=== PATIENT | female | born 1995 | race Two or more races ===

== ENCOUNTER 2020-05-17 07:38 | Emergency (ER) | payer OTHER ==
[~2020-05-17] VITALS: Ht 165.1 cm; Wt 107.0 kg
[2020-05-17] MEDS ORDERED: SODIUM CHLORIDE 0.9% 1,000 ML IV ONE (08:45)
[2020-05-17 09:05] LABS: BASOPHILS % 0.9 % (0.0-2.0); EOSINOPHILS % 0.9 % (0.0-5.0); HEMATOCRIT. 26.3 % (36.0-48.0); HEMOGLOBIN. 8.3 g/dL (12.0-16.0); LYMPHOCYTES % 24.7 % (20.0-50.0); MEAN CORPUSCULAR HEMOGLOBIN 22.5 pg (28.0-32.0); MEAN CORPUSCULAR VOLUME 71.4 fL (81.0-99.0); MEAN PLATELET VOLUME 8.3 fl (7.4-10.4); MONOCYTES % 7.4 % (2.0-8.0); NEUTROPHILS % 66.1 % (40.0-76.0); PLATELET 400 x1000/uL (130-400); RED BLOOD CELL COUNT 3.68 mill/uL (4.2-5.4); RED CELL DISTRIBUTION WIDTH 16.7 % (11.6-14.6)
[2020-05-17 09:12] LABS: CHLORIDE 109 mEq/L (98-107)
[2020-05-17 09:17] LABS: HCG SCREEN NEGATIVE
[2020-05-17] MEDS ORDERED: KETOROLAC 15MG/ML VIAL IV ONE (09:30)
[2020-05-17 10:13] LABS: CLARITY URINE CLEAR (CLEAR); COLOR URINE YELLOW (YELLOW); KETONES URINE NEGATIVE (NEGATIVE); LEUKOCYTE ESTERASE URINE NEGATIVE (NEGATIVE); NITRITE URINE NEGATIVE (NEGATIVE); OCCULT BLOOD URINE TRACE (NEGATIVE); PH URINE 7.5 (4.5-8.0); PROTEIN URINE NEGATIVE (NEGATIVE); SPECIFIC GRAVITY URINE 1.026 (1.005-1.030); UROBILINOGEN URINE 0.2 E.U./dL (0.2-1.0)
[2020-05-17 11:53] VITALS: BP 126/63
== END 2020-05-17 12:18 | disposition home or self-care (01) ==
LOC: ER 07:38
DX: N93.8 Other specified abnormal uterine and vaginal bleeding (principal)
CPT/HCPCS: 36415; 76830; 76856; 80053; 81003; 84703; 85025; 93005; 96361; 96374; 99285; J1885; J7030

== ENCOUNTER 2021-06-21 08:00 | Emergency (ER) | payer MEDICAID, OTHER ==
[~2021-06-21] VITALS: Ht 165.1 cm; Wt 97.0 kg
[2021-06-21 08:03] VITALS: BP 128/73
[2021-06-21] MEDS ORDERED: VALA100044 MT (08:33)
[2021-06-21] MEDS ORDERED: HYDR-4001 MT (08:33)
== END 2021-06-21 09:41 | disposition home or self-care (01) ==
LOC: ER 08:00
DX: B00.89 Other herpesviral infection (principal)
CPT/HCPCS: 99283